=== PATIENT | female | born 1990 | race Two or more races ===

== ENCOUNTER 2025-03-19 11:45 | Inpatient (IN) | payer MEDICAID, OTHER ==
[~2025-03-19] VITALS: Ht 170.2 cm; Wt 71.7 kg
[2025-03-19 12:38] LABS: Urine Bacteria None Seen /hpf (None Seen)
[2025-03-19 12:42] LABS: Basophils # (auto) 0 10 ^3/uL (0-0.2); Basophils % (auto) 0.5 % (0.0-2.0); Eosinophils # (auto) 0 10 ^3/uL (0-0.8); Eosinophils % (auto) 0.7 % (0.0-7.0); Hematocrit 36.6 % (36.0-46.0); Hemoglobin 12.7 g/dL (12.2-16.2); Lymphocytes # (auto) 1.7 10 ^3/uL (0.4-5.4); Lymphocytes % (auto) 24.6 % (10.0-50.0); Mean Corpuscular Hemoglobin 30.2 pg (28.0-32.0); Mean Corpuscular Hgb Conc. 34.7 g/dL (32.0-36.0); Monocytes # (auto) 0.6 10 ^3/uL (0-1.3); Neutrophils # (auto) 4.6 10 ^3/uL (1.6-8.6); Neutrophils % (auto) 65.2 % (37.0-80.0); Platelet Count (auto) 170 10^3/uL (140-450); Red Cell Distribution Width 14.8 % (11.8-14.3)
[2025-03-19 12:56] LABS: Urine Blood 1+ /uL (Negative); Urine Clarity Clear (Clear); Urine Color Yellow (Yellow); Urine Mucus FEW (None Seen); Urine Protein, UAD TRACE (Negative); Urine Specific Gravity 1.029 (1.001-1.035); Urine Squamous Epithelial Cell FEW /hpf (<5); Urine Urobilinogen Normal (Negative); Urine WBC 2 /HPF (0-5); Urine pH 5.5 (5.0-9.0)
[2025-03-19 12:58] LABS: INR 0.95 (0.9-1.15); Partial Thromboplastin Time 26.9 SEC (24.5-34.5); Prothrombin Time 10.1 sec (9.3-11.8)
[2025-03-19 13:00] LABS: Alanine Aminotransferase 11 U/L (7-40); Alkaline Phosphatase 186 U/L (46-116); Anion Gap 11 (5-15); Aspartate Aminotransferase 15 U/L (13-40); BUN/Creatinine Ratio 22.5 (10.0-20.0); Bilirubin, Total 0.5 mg/dL (0.2-1.0); Blood Urea Nitrogen 16 mg/dL (9-23); Calcium 9.9 mg/dL (8.7-10.4); Carbon Dioxide 20 mmol/L (20-31); Chloride 108 mmol/L (98-107); Glucose 94 mg/dL (74-106); Potassium 3.9 mmol/L (3.5-5.1); Sodium 139 mmol/L (136-145)
--- NOTE | 2025-03-19 13:36 | DVH ---
CLINICAL HISTORY: Spontaneous rupture of membranes. No care. COMPARISON: None TECHNIQUE: biophysical profile was performed. Transabdominal sonographic images of the fetus we re obtained. FINDINGS: The fetus is in cephalic position. heart rate measures 143 BPM. Amniotic fluid index measures 10.4 cm. The placenta is anterior in position. BPP profile is an overall score of 4/8, with 2/2 points for breathing, with at least one episode of breathing over a 30 second duration during a 30 minute observation, 0/2 points for m ovements, without 3 or more discrete body or limb movements, 0/2 points for tone, without one o r more episodes of extremity extension with return to flexion, or opening and closing of hand, and 2/2 points for amniotic fluid, with at least 1 pocket of amniotic fluid that measures 2 cm in 2 p erpendicular planes. IMPRESSION: 1. Abnormal BPP score of 4/8, with 0/2 for movements and 0/2 for tone. 2. The patient's RN was informed of the abnormal BPP findings by the drum carrier.
[2025-03-19 14:02] LABS: Amphetamine Screen, Urine Neg (NEGATIVE); Barbiturate Scree,Urine Neg (NEGATIVE); Benzodiazephine Screen, Urine Neg (NEGATIVE); Cannabinoid Screen, Urine Neg (NEGATIVE); Cocaine Screen, Urine Neg (NEGATIVE); Opiate Scree,Urine Neg (NEGATIVE); Phencyclidine Screen, Urine Neg (NEGATIVE)
--- NOTE | 2025-03-19 14:35 | DVH ---
OB ULTRASOUND COMPLETE: HISTORY: No Care TECHNIQUE: Multiple real-time grayscale images of the gravid uterus with duplex Doppler color flow an d M-mode spectral analysis. FINDINGS: IUP single live fetus at average ultrasound age (AUA) based on composite averages of the BPD, head c ircumference, abdominal circumference and femur length Age based on (early ultrasound) : MEASUREMENTS: BPD: 8.89 cm GA: 36w 0d; 11.4 %, HC: 31.82 cm GA: 35 w 6 d; <3%; AC: 31.52 cm GA : 5 w 3 d; <3%, FL: 6.83 cm GA: 35 w 1 d HL: Not given HC/AC Ratio: 1.01 Range: 0.93-1.09 CI: 84.84 (70 86) FL/BPD: 76.8 (71-87) FL/AC: 21. (20-24) FL/HC: 21.46 (20.1-22.19) Estimated weight 2679 +/-4 grams; 5 lbs 14 oz, <10% percentile. heart rate 143 beats per minute GABO 10.4 cm, MVP given anatomic survey: Lateral ventricles: Normal Posterior fossa: Normal Umbilical cord: Normal thre e-vessel C-spine: Normal T-spine: Normal L-spine: Normal Heart: Normal four-chamber Kidneys: Normal w ithout hydronephrosis Bladder: Normal Lower extremities: Normal Upper extremities: Normal Stomach: No rmal stomach bubble Diaphragms: Normal Nose/lips: Normal RVOT: Normal LVOT: Performed on prior study. Cephalic Presentation Anterior Grade 2 Placenta without previa or abruption. There is a 0.92 x 1.42 x 1.48 cm venous Romo in the placenta. Cervix closed length measurement not given IMPRESSION: 1. IUP single live fetus at 35 weeks 4 days plus or minus 2 weeks 3 days AUA corresponding to an DELON of 04/19/2025. 2. FHR: 143 bpm.
[2025-03-19] MEDS ORDERED: BUTORPHANOL TARTRATE 2 MG/1 ML VIAL IV PRN ×2 (15:15)
--- NOTE | 2025-03-19 15:31 | DVHHP ---
ADMIT DATE: 03/19/2025 CHIEF COMPLAINT: Rupture of membrane. HISTORY OF PRESENT ILLNESS: The patient is a 34-year-old 1 para 0 with EDC of 03/28, estimated gestational age of 38 plus weeks, admitted for spontaneous rupture of membranes. The patient reports having some leakage. She had care in [place], limited. She gives a due date of 03/28. Denies any other issues. PAST MEDICAL HISTORY: None. PAST SURGICAL HISTORY: None. SOCIAL HISTORY: None. FAMILY HISTORY: None. OBSTETRIC AND GYNECOLOGIC HISTORY: Primigravid. REVIEW OF SYSTEMS: Consistent with HPI. ALLERGIES: No known drug allergies. PHYSICAL EXAMINATION: VITAL SIGNS: Afebrile. HEENT: Within normal limits. CARDIOVASCULAR: Regular rate and rhythm. LUNGS: Clear to auscultation. BREASTS: Breasts symmetrical, no masses. ABDOMEN: Gravid. Positive heart. PELVIC: Cervix fingertip, thick, high. Positive AmniSure. No pooling. EXTREMITIES: No clubbing, cyanosis or edema. IMPRESSION: * Intrauterine at 38 plus weeks with spontaneous rupture of membranes. * Limited care. PLAN: Admit. We will proceed with Cytotec. Start Ancef. Informed consent obtained. DO HORACE Villaseñor TID: [id number] RECEIPT: [id number]
--- NOTE | 2025-03-19 15:41 | DVH ---
EXAM: US BIOPHYSICAL PROFILE HISTORY: REPEAT FOR FAILED BPP COMPARISON: US BIOPHYSICAL PROFILE on DOS: 03/19/25 TECHNIQUE: Multiple transabdominal real-time grayscale sonographic images through the gravid uterus of the fetus with duplex Doppler color flow and M-mode spectral analysis Findings/Impression: Single live intrauterine in vertex presentation with heart rate of 137 bpm. Biophysical profile was performed with 2 points for respirations, 2 points for movement, 2 points for tone and 2 points for amniotic fluid index. Biophysical profile score of 8/8. Amniotic fluid is within normal limits with GABO 9.0 cm and MVP 5.7 cm. Nuchal cord. Normal GAOB (5-25 cm) Normal MVP (2-8 cm)
[2025-03-19] MEDS: ceFAZolin 1GM/50ML 50 ML IV SCH (16:29)
[2025-03-19] MEDS: LACTATED RINGER'S 1,000 ML IV SCH (16:30)
[2025-03-19] MEDS ORDERED: PENICILLIN G POTASSIUM 2,500,000 UNITS in D5W 5% 50 ML IV SCH (19:15)
[2025-03-19] MEDS ORDERED: NALBUPHINE HCL 10 MG/1ml INJECTION IV PRN (20:15)
[2025-03-19] MEDS: miSOPROStol 50 MCG per PRE-CUT 1/2 TAB PO PRN (20:32)
--- NOTE | 2025-03-19 21:25 | DVHPN2 ---
OB Labor Progress Note Date and Time Seen Date Seen: March 19, 2025 Time Seen: 20:03 Objective Vital Signs VSS Monitoring Method Monitoring Method: External Heart Rate Heart Rate Variability: Moderate Presence of FHR Accelerations: Yes Presence of FHR Decelerations: No Changes in Trends of Patterns: No Are all 5 Components of the FH: Yes Contractions Contractions Frequency: None Membranes Membranes: Ruptured Amniotic Fluid Color: Clear Vaginal Exam Vag Exam Deferred: Yes Medications Medications - Pitocin: No Medication - Epidural: No Medication - Other Misoprostol to be started Lab Results Lab Results Current Medications Medications (Trade) Dose Ordered Sig/Gonzales Start Time Stop Time Status Last Admin Dose Admin Lactated Ringer's 1,000 ml @ 125 mls/hr Q8H 03/19/25 15:15 03/19/25 16:30 125 MLS/HR Penicillin G Potassium 50 ml @ 100 mls/hr ONCE ONCE 03/19/25 15:15 03/19/25 15:44 DC Penicillin G Potassium [id number] units/Dextrose 50 ml @ 100 mls/hr Q4H 03/19/25 19:15 Cefazolin Sodium 50 ml @ 100 mls/hr Q8HR 03/19/25 22:00 03/19/25 15:35 DC Witch Sharon (Tucks) 1 pad PRN PRN 03/19/25 15:15 Sodium Lauryl Sulfate (Phisoderm) 240 ml PRN PRN 03/19/25 15:15 Benzocaine (Dermoplast) 1 applic PRN PRN 03/19/25 15:15 Butorphanol Tartrate (Stadol Injection) 1 mg Q4HPRN PRN 03/19/25 15:15 03/19/25 20:09 DC Butorphanol Tartrate (Stadol Injection) 2 mg Q4HPRN PRN 03/19/25 15:15 03/19/25 20:09 DC Lidocaine HCl (Xylocaine) 20 ml ONCE PRN 03/19/25 15:15 Cefazolin Sodium 50 ml @ 100 mls/hr Q8HR 03/19/25 16:00 03/19/25 16:29 100 MLS/HR Misoprostol (Cytotec) 50 mcg Q4HPRN PRN 03/19/25 20:15 03/19/25 20:32 50 MCG Nalbuphine HCl (Nubain) 10 mg Q4HP PRN 03/19/25 20:15 Laboratory Tests Test 03/19/25 13:20 03/19/25 12:24 Range/Units Placental [id number]-5-[id number] Positive White Blood Count 7.0 4.4-10.8 10^3/uL Red Blood Count 4.20 4.0-5.20 10^6/uL Hemoglobin 12.7 12.2-16.2 g/dL Hematocrit 36.6 36.0-46.0 % Mean Corpuscular Volume 87.0 80.0-100.0 fL Mean Corpuscular Hemoglobin 30.2 28.0-32.0 pg Mean Corpuscular Hemoglobin Concent 34.7 32.0-36.0 g/dL Red Cell Distribution Width 14.8 H 11.8-14.3 % Platelet Count 170 140-450 10^3/uL Mean Platelet Volume 6.4 L 6.9-10.8 fL Neutrophils (%) (Auto) 65.2 37.0-80.0 % Lymphocytes (%) (Auto) 24.6 10.0-50.0 % Monocytes (%) (Auto) 9.0 0.0-12.0 % Eosinophils (%) (Auto) 0.7 0.0-7.0 % Basophils (%) (Auto) 0.5 0.0-2.0 % Neutrophils # (Auto) 4.6 1.6-8.6 10 ^3/uL Lymphocytes # (Auto) 1.7 0.4-5.4 10 ^3/uL Monocytes # (Auto) 0.6 0-1.3 10 ^3/uL Eosinophils # (Auto) 0 0-0.8 10 ^3/uL Basophils # (Auto) 0 0-0.2 10 ^3/uL Nucleated Red Blood Cells 0.0 % Prothrombin Time 10.1 9.3-11.8 sec Prothrombin Time INR 0.95 0.9-1.15 Activated Partial Thromboplast Time 26.9 24.5-34.5 SEC Urine Color Yellow Yellow Urine Clarity Clear Clear Urine pH 5.5 5.0-9.0 Urine Specific [place] 1.029 1.001-1.035 Urine Protein Trace H Negative Urine Ketones Negative Negative Urine Blood 1+ H Negative /uL Urine Nitrite Negative Negative Urine Bilirubin Negative Negative Urine Urobilinogen Normal Negative mg/dL Urine Leukocyte Esterase 1+ Negative /uL Urine RBC 4 0 - 4 /hpf Urine Microscopic WBC 2 0-5 /HPF Urine Squamous Epithelial Cells Few <5 /hpf Urine Bacteria None seen None Seen /hpf Urine Mucus Few None Seen Urine Glucose Normal Normal mg/dL Sodium Level 139 136-145 mmol/L Potassium Level 3.9 3.5-5.1 mmol/L Chloride Level 108 H 98-107 mmol/L Carbon Dioxide Level 20 20-31 mmol/L Anion Gap 11 5-15 Blood Urea Nitrogen 16 9-23 mg/dL Creatinine 0.71 0.550-1.02 mg/dL Glomerular Filtration Rate Calc 114 >90 mL/min BUN/Creatinine Ratio 22.5 H 10.0-20.0 Serum Glucose 94 74-106 mg/dL Hemoglobin A1c 5.2 <5.7 % A1C Calcium Level 9.9 8.7-10.4 mg/dL Total Bilirubin 0.5 0.2-1.0 mg/dL Aspartate Amino Transferase (AST) 15 13-40 U/L Alanine Aminotransferase (ALT) 11 7-40 U/L Alkaline Phosphatase 186 H 46-116 U/L Total Protein 7.0 5.7-8.2 g/dL Albumin 4.0 3.2-4.8 g/dL Urine Opiates Screen Neg NEGATIVE Urine Fentanyl Screen Neg NEGATIVE Urine Barbiturates Screen Neg NEGATIVE Urine Phencyclidine Screen Neg NEGATIVE Urine Amphetamines Screen Neg NEGATIVE Urine Benzodiazepines Screen Neg NEGATIVE Urine Cocaine Screen Neg NEGATIVE Urine Cannabinoids Screen Neg NEGATIVE Treponema pallidum Antibody Non-reactive Negative Hepatitis B Surface Antigen Negative Negative Hepatitis C Antibody Negative Negative HIV (1&2) Antibody Negative Negative Assessment Assessment IUP at 38w 5d PSROM IOL due to SROM Category I FHR tracing Plan Plan IOL Misoprostol per policy EFM per policy Intrauterine resuscitation PRN Labor Analgesia PRN Encourage frequent position change and ambulation to facilitate labor Supportive care Anticipate Plan discussed with: Patient, Other (Aunts x2 and cousin's ) Visit Coding OBGYN Date of Service: March 19, 2025 Billing Provider: COREY SIFUENTES CNM THEATER TEACHER Common Visit Codes: [id number] INP/OBS CARE(HIGH) THEATER TEACHER Procedure Codes: 97429-89- NON-STRESS TEST COREY SIFUENTES CNM March 19, 2025 21:25
[2025-03-19] MEDS ORDERED: ceFAZolin 1GM/50ML 50 ML IV SCH (22:00)
[2025-03-20] MEDS: DERMOPLAST 60ML BOTTLE TOP PRN (02:09)
[2025-03-20] MEDS: WITCH HAZEL-GLYCERIN PAD TOP PRN (02:09)
[2025-03-20] MEDS: PHISODERM TOP SOLN 240ML BTL TOP PRN (02:10)
--- NOTE | 2025-03-20 04:38 | DVHPN2 ---
OB Labor Progress Note Date and Time Seen Date Seen: March 20, 2025 Time Seen: 02:47 Subjective Patient reports: No new complaints Monitoring Method Monitoring Method: External Heart Rate Heart Rate Baseline: 135 Heart Rate Variability: Moderate Presence of FHR Accelerations: Yes Presence of FHR Decelerations: No Changes in Trends of Patterns: No Are all 5 Components of the FH: Yes Contractions Contractions Frequency: Other (1-2 in 10minutes) Duration of Contraction: 50 Contractions Intensity: Mild Contractions Resting Tone: Relaxed Membranes Membranes: Ruptured Amniotic Fluid Color: Clear Vaginal Exam Vag Exam Deferred: No Vaginal Exam Dilation: 2 Vaginal Exam Effacement: 50 Vaginal Exam Station: -2 Vaginal Exam Presentation: VTX Vaginal Exam Show: None Medications Medications - Pitocin: No Medication - Epidural: No Medication - Other Misoprostol Lab Results Lab Results Current Medications Medications (Trade) Dose Ordered Sig/Gonzales Start Time Stop Time Status Last Admin Dose Admin Lactated Ringer's 1,000 ml @ 125 mls/hr Q8H 03/19/25 15:15 03/19/25 16:30 125 MLS/HR Penicillin G Potassium 50 ml @ 100 mls/hr ONCE ONCE 03/19/25 15:15 03/19/25 15:44 DC Penicillin G Potassium [id number] units/Dextrose 50 ml @ 100 mls/hr Q4H 03/19/25 19:15 Cefazolin Sodium 50 ml @ 100 mls/hr Q8HR 03/19/25 22:00 03/19/25 15:35 DC Felipa Herrera (Tucks) 1 pad PRN PRN 03/19/25 15:15 03/20/25 02:09 1 PAD Sodium Lauryl Sulfate (Phisoderm) 240 ml PRN PRN 03/19/25 15:15 03/20/25 02:10 240 ML Benzocaine (Dermoplast) 1 applic PRN PRN 03/19/25 15:15 03/20/25 02:09 1 APPLIC Butorphanol Tartrate (Stadol Injection) 1 mg Q4HPRN PRN 03/19/25 15:15 03/19/25 20:09 DC Butorphanol Tartrate (Stadol Injection) 2 mg Q4HPRN PRN 03/19/25 15:15 03/19/25 20:09 DC Lidocaine HCl (Xylocaine) 20 ml ONCE PRN 03/19/25 15:15 Cefazolin Sodium 50 ml @ 100 mls/hr Q8HR 03/19/25 16:00 03/20/25 00:03 100 MLS/HR Misoprostol (Cytotec) 50 mcg Q4HPRN PRN 03/19/25 20:15 03/20/25 00:32 50 MCG Nalbuphine HCl (Nubain) 10 mg Q4HP PRN 03/19/25 20:15 Laboratory Tests Test 03/19/25 13:20 03/19/25 12:24 Range/Units Placental Hhbnl-9-Qebxwbuccljwu Positive White Blood Count 7.0 4.4-10.8 10^3/uL Red Blood Count 4.20 4.0-5.20 10^6/uL Hemoglobin 12.7 12.2-16.2 g/dL Hematocrit 36.6 36.0-46.0 % Mean Corpuscular Volume 87.0 80.0-100.0 fL Mean Corpuscular Hemoglobin 30.2 28.0-32.0 pg Mean Corpuscular Hemoglobin Concent 34.7 32.0-36.0 g/dL Red Cell Distribution Width 14.8 H 11.8-14.3 % Platelet Count 170 140-450 10^3/uL Mean Platelet Volume 6.4 L 6.9-10.8 fL Neutrophils (%) (Auto) 65.2 37.0-80.0 % Lymphocytes (%) (Auto) 24.6 10.0-50.0 % Monocytes (%) (Auto) 9.0 0.0-12.0 % Eosinophils (%) (Auto) 0.7 0.0-7.0 % Basophils (%) (Auto) 0.5 0.0-2.0 % Neutrophils # (Auto) 4.6 1.6-8.6 10 ^3/uL Lymphocytes # (Auto) 1.7 0.4-5.4 10 ^3/uL Monocytes # (Auto) 0.6 0-1.3 10 ^3/uL Eosinophils # (Auto) 0 0-0.8 10 ^3/uL Basophils # (Auto) 0 0-0.2 10 ^3/uL Nucleated Red Blood Cells 0.0 % Prothrombin Time 10.1 9.3-11.8 sec Prothrombin Time INR 0.95 0.9-1.15 Activated Partial Thromboplast Time 26.9 24.5-34.5 SEC Urine Color Yellow Yellow Urine Clarity Clear Clear Urine pH 5.5 5.0-9.0 Urine Specific [place] 1.029 1.001-1.035 Urine Protein Trace H Negative Urine Ketones Negative Negative Urine Blood 1+ H Negative /uL Urine Nitrite Negative Negative Urine Bilirubin Negative Negative Urine Urobilinogen Normal Negative mg/dL Urine Leukocyte Esterase 1+ Negative /uL Urine RBC 4 0 - 4 /hpf Urine Microscopic WBC 2 0-5 /HPF Urine Squamous Epithelial Cells Few <5 /hpf Urine Bacteria None seen None Seen /hpf Urine Mucus Few None Seen Urine Glucose Normal Normal mg/dL Sodium Level 139 136-145 mmol/L Potassium Level 3.9 3.5-5.1 mmol/L Chloride Level 108 H 98-107 mmol/L Carbon Dioxide Level 20 20-31 mmol/L Anion Gap 11 5-15 Blood Urea Nitrogen 16 9-23 mg/dL Creatinine 0.71 0.550-1.02 mg/dL Glomerular Filtration Rate Calc 114 >90 mL/min BUN/Creatinine Ratio 22.5 H 10.0-20.0 Serum Glucose 94 74-106 mg/dL Hemoglobin A1c 5.2 <5.7 % A1C Calcium Level 9.9 8.7-10.4 mg/dL Total Bilirubin 0.5 0.2-1.0 mg/dL Aspartate Amino Transferase (AST) 15 13-40 U/L Alanine Aminotransferase (ALT) 11 7-40 U/L Alkaline Phosphatase 186 H 46-116 U/L Total Protein 7.0 5.7-8.2 g/dL Albumin 4.0 3.2-4.8 g/dL Urine Opiates Screen Neg NEGATIVE Urine Fentanyl Screen Neg NEGATIVE Urine Barbiturates Screen Neg NEGATIVE Urine Phencyclidine Screen Neg NEGATIVE Urine Amphetamines Screen Neg NEGATIVE Urine Benzodiazepines Screen Neg NEGATIVE Urine Cocaine Screen Neg NEGATIVE Urine Cannabinoids Screen Neg NEGATIVE Treponema pallidum Antibody Non-reactive Negative Chlamydia trachomatis (KORINA) Pending Hepatitis B Surface Antigen Negative Negative Hepatitis C Antibody Negative Negative HIV (1&2) Antibody Negative Negative Neisseria gonorrhoeae ([place]ORINA) Pending Assessment Assessment IUP at 38w 6d SROM IOL for above Plan Plan Continue with current plan Misoprostol Intrauterine resuscitation PRN Labor analgesia PRN Supportive care Anticipate Plan discussed with: Patient, Other (Family - Aunts and cousin's ) Visit Coding OBGYN Date of Service: March 20, 2025 Billing Provider: COREY SIFUENTES CNM BILINGUAL RESEARCH INTERVIEWER Common Visit Codes: [id number] INP/OBS CARE(HIGH) BILINGUAL RESEARCH INTERVIEWER Procedure Codes: 08543-70- NON-STRESS TEST COREY SIFUENTES CNM March 20, 2025 04:38
[2025-03-20] MEDS: fentaNYL CITRATE 100 MCG/2 ML VL IV ONE (09:45)
[2025-03-20] MEDS ORDERED: LIDOCAINE HCL 2 %PF INJ 10ML AMP IJ ONE (09:45)
[2025-03-20] MEDS ORDERED: NALOXONE HCL 0.4 MG/ML VIAL IV ONE ×2 (09:45→14:45)
[2025-03-20] MEDS: LACT. RINGERS/OXYTOCIN 20UNITS 500 ML IV ONE (12:00)
[2025-03-20] MEDS ORDERED: TERBUTALINE SULFATE 1 MG/ML 1ML VIAL SC PRN (12:00)
[2025-03-20] MEDS: ePHEDrine SULFATE 50 MG/ML AMP IV ONE ×2 (12:45→14:45)
[2025-03-20] MEDS: PENICILLIN G POT 5MIL/D5 50ML 50 ML IV ONE (14:10)
[2025-03-20] MEDS: ACETAMINOPHEN 325 MG TAB PO ONE (14:24)
[2025-03-20] MEDS: ROPIVACAINE HCL 200 ML ONE (15:15)
[2025-03-20] MEDS: ceFAZolin 1GM/50ML 50 ML IV SCH (16:21)
[2025-03-20] MEDS: LACTATED RINGER'S 1,000 ML IV ONE (17:35)
[2025-03-20] MEDS: PENICILLIN G POTASSIUM 2,500,000 UNITS in D5W 5% 50 ML IV SCH (17:55)
[2025-03-20] MEDS: LACT. RINGERS/OXYTOCIN 20UNITS 1,000 ML IV SCH (20:38)
[2025-03-20] MEDS: ONDANSETRON HCL 4 MG/2 ML VIAL ONE (20:41)
[2025-03-20] MEDS: ONDANSETRON HCL 4 MG/2 ML VIAL IV PRN (20:52)
[2025-03-20] MEDS: ACETAMINOPHEN 325 MG TAB PO PRN (22:59)
[2025-03-20] MEDS ORDERED: METHYLERGONOVINE MALEATE 0.2 MG/ML AMP IM PRN (23:45)
[2025-03-21] MEDS: LACT. RINGERS/OXYTOCIN 20UNITS 500 ML IV ONE (03:32)
[2025-03-21] MEDS: LIDOCAINE 2%HCL (LOCAL ANESTH.) INJ 20ML MDV IJ PRN (04:06)
--- NOTE | 2025-03-21 04:10 | LDN2 ---
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 Greer Comments/Significant Med Alisha At 0259 this 34yo now delivered a viable Female by w/ APGARS 9/9. HEATHER. placed skin to skin on pts chest. Cord clamped and cut after 2 minutes. Cord blood sent. Intact 3-vessel cord placenta delivered spontaneously, [place]. Pitocin IV bolus started. Placenta sent to pathology. Patient had epidural and local anesthesia. Cervix/vagina inspected (intact) and second degree perineal and left labial laceration present which was repaired with 2-0 Chromic suture. Rectal mucosa and sphincter intact. Rectal exam performed, WNL, not involved.Fundus at U, firm, midline, and light lochia. QBL 300ml. VSS. Count correct x2. Patient to care and baby to couplet care, both stable. Visit Coding OBGYN Date of Service: March 21, 2025 Billing Provider: KATIE KATHLEEN DO NURSING TECHNICIAN Common Visit Codes: PROCEDURE ONLY NURSING TECHNICIAN Procedure Codes: [id number] DEL INCLUDING JAMES MORROW STDIta MDWF March 21, 2025 04:10
[2025-03-21 07:00] VITALS: BP 101/52; PULSE 88; RESP 20; TEMP 98.5; O2SAT 96
[2025-03-21] MEDS ORDERED: ACETAMINOPHEN 325 MG TAB PO PRN (08:45)
[2025-03-21 11:15] VITALS: BP 107/64; PULSE 80; RESP 15; TEMP 99.1; O2SAT 97
[2025-03-21] MEDS: IBUPROFEN 600 MG TAB PO PRN (15:10)
[2025-03-21 15:15] VITALS: BP 105/67; PULSE 90; RESP 15; TEMP 98.9; O2SAT 95
[2025-03-21] MEDS: DOCUSATE SOD 100 MG CAP PO SCH (22:50)
[2025-03-21 23:00] VITALS: BP 106/64; PULSE 84; RESP 16; TEMP 98.9; O2SAT 96
--- NOTE | 2025-03-22 01:10 | DVHPN2 ---
Progress Note Date Seen: March 22, 2025 Subjective S: bleeding is less, eating food without issues, denies lightheaded/dizziness, pain well controlled with oral medications, no concerns with urinating, passing flatus, no BM yet, ambulating well, and formula vital signs Vital Sign Date Time Temp Pulse Resp B/P (MAP) Pulse Ox O2 Delivery O2 Flow Rate FiO2 03/21/25 23:00 98.9 84 16 106/64 (78) 96 98.9 03/21/25 07:00 Room Air 0.0 Total Intake and Output 03/21/25 03/21/25 03/22/25 15:00 23:00 07:00 Output Total 400 ml 500 ml Balance -400 ml -500 ml medications Current Medications Medications Dose Ordered Sig/Gonzales Route Start Time Stop Time Status Last Admin Dose Admin Felipa Herrera 1 pad PRN PRN TOP 03/19/25 15:15 03/20/25 02:09 1 PAD Sodium Lauryl Sulfate 240 ml PRN PRN TOP 03/19/25 15:15 03/20/25 02:10 240 ML Benzocaine 1 applic PRN PRN TOP 03/19/25 15:15 03/20/25 02:09 1 APPLIC Nalbuphine HCl 10 mg Q4HP PRN IV 03/19/25 20:15 Cancel Terbutaline Sulfate 0.25 mg ONCE PRN SC 03/20/25 12:00 Cancel Ondansetron HCl 4 mg Q4HPRN PRN IV 03/20/25 20:45 03/21/25 01:26 4 MG Acetaminophen 650 mg Q4HP PRN PO 03/20/25 23:00 03/21/25 07:09 650 MG Methylergonovine Maleate 0.2 mg Q8HP PRN IM 03/20/25 23:45 03/22/25 23:44 Ibuprofen 600 mg Q6HP PRN PO 03/21/25 08:45 03/21/25 15:10 600 MG Docusate Sodium 200 mg HS PO 03/21/25 22:00 03/21/25 22:50 200 MG laboratory and microbiology Laboratory Tests 03/19/25 12:24 Test 03/19/25 12:24 Range/Units Serum Glucose 94 74-106 mg/dL Objective O: VSS Chest: heart sounds normal and lung sounds clear bilaterally Abd: soft, non-tender, fundus at U/firm/midline, active bowel sounds, no rebound or guarding Perineum: sutures intact, edges well approximated, no erythema/edema noted Ext: Non-tender, No edema, 2+ BLE DTRs Lochia: minimal See lab results Problems(with codes): (1) (normal spontaneous vaginal delivery) (2) Obstetric labial laceration, delivered, current hospitalization (3) Precipitous drop in hematocrit (4) Second degree perineal laceration during delivery Assessment/Plan A/P: 34yo now PPD#1 s/p -Continue with routine PP care Plan discussed with: Patient, Other (Family - Aunts and cousin's ) Visit Coding OBGYN Date of Service: March 22, 2025 Billing Provider: ONEIL JARAMILLO CNM RESIDENT ASSOCIATE Common Visit Codes: [id number] INP/OBS CARE(MOD) ONEIL JARAMILLO CNM March 22, 2025 01:10
--- NOTE | 2025-03-22 01:11 | DVHDS2 ---
Physician Discharge Progress N Follow Up Care: Discharge Statement: "Patient was advised to return to the ER or call 911 if any headaches, dizziness, shortness of breath, chest pain, abdominal pain, bleeding, fevers, or worsening of medical condition. Patient was counseled about treatment plan, medications, possible side effects, patientverbalized understanding. All questions were answered to the best of my ability. This discharge took greater then 30 minutes in planning, reviewing documentation, counseling the patient, and discussing with other team members." ONEIL JARAMILLO CNM March 22, 2025 01:11
[2025-03-22] MEDS ORDERED: IBU600T PO (02:03)
[2025-03-22] MEDS ORDERED: PREN-96 PO (02:03)
[2025-03-22] MEDS ORDERED: DOCU-265 PO (02:03)
[2025-03-22 03:00] VITALS: BP 97/55; PULSE 73; RESP 16; TEMP 98; O2SAT 96
[2025-03-22 07:00] VITALS: BP 107/57; PULSE 76; RESP 16; TEMP 98.4; O2SAT 95
[2025-03-22 09:19] LABS: Basophils # (auto) 0 10 ^3/uL (0-0.2); Basophils % (auto) 0.4 % (0.0-2.0); Eosinophils # (auto) 0.1 10 ^3/uL (0-0.8); Hematocrit 30.7 % (36.0-46.0); Hemoglobin 10.3 g/dL (12.2-16.2); Lymphocytes # (auto) 2.3 10 ^3/uL (0.4-5.4); Lymphocytes % (auto) 21.2 % (10.0-50.0); Mean Corpuscular Hemoglobin 29.5 pg (28.0-32.0); Mean Corpuscular Hgb Conc. 33.5 g/dL (32.0-36.0); Mean Corpuscular Volume 88.2 fL (80.0-100.0); Monocytes # (auto) 0.7 10 ^3/uL (0-1.3); Monocytes % (auto) 6.5 % (0.0-12.0); Neutrophils # (auto) 7.8 10 ^3/uL (1.6-8.6); Neutrophils % (auto) 70.9 % (37.0-80.0); Platelet Count (auto) 157 10^3/uL (140-450); Red Blood Cells 3.47 10^6/uL (4.0-5.20); Red Cell Distribution Width 14.8 % (11.8-14.3)
[2025-03-22 11:00] VITALS: BP 103/56; PULSE 75; RESP 16; TEMP 98.2; O2SAT 96
[2025-03-22 15:00] VITALS: BP 101/68; PULSE 76; RESP 16; TEMP 99; O2SAT 97
[2025-03-22] MEDS ORDERED: FER325T PO (15:39)
[2025-03-22 19:00] VITALS: BP 99/63; PULSE 72; RESP 17; TEMP 98.1; O2SAT 97
[2025-03-22] MEDS: FERROUS SULFATE 325mg EC TAB PO ONE (22:02)
[2025-03-22 23:00] VITALS: BP 109/72; PULSE 68; RESP 14; TEMP 97.9; O2SAT 96
--- NOTE | 2025-03-23 01:49 | DVHPN2 ---
Progress Note Date Seen: March 23, 2025 Subjective S: bleeding is less, eating food without issues, denies lightheaded/dizziness, pain well controlled with oral medications, no concerns with urinating, passing flatus, no BM yet, ambulating well, and formula vital signs Vital Sign Date Time Temp Pulse Resp B/P (MAP) Pulse Ox O2 Delivery O2 Flow Rate FiO2 03/22/25 23:00 97.9 68 14 109/72 (84) 96 97.9 03/22/25 19:00 Room Air 03/21/25 07:00 0.0 Total Intake and Output 03/22/25 03/22/25 03/23/25 15:00 23:00 07:00 Intake Total 300 ml Balance 300 ml medications Current Medications Medications Dose Ordered Sig/Gonzales Route Start Time Stop Time Status Last Admin Dose Admin Felipa Herrera 1 pad PRN PRN TOP 03/19/25 15:15 03/20/25 02:09 1 PAD Sodium Lauryl Sulfate 240 ml PRN PRN TOP 03/19/25 15:15 03/20/25 02:10 240 ML Benzocaine 1 applic PRN PRN TOP 03/19/25 15:15 03/20/25 02:09 1 APPLIC Nalbuphine HCl 10 mg Q4HP PRN IV 03/19/25 20:15 Cancel Terbutaline Sulfate 0.25 mg ONCE PRN SC 03/20/25 12:00 Cancel Ondansetron HCl 4 mg Q4HPRN PRN IV 03/20/25 20:45 03/21/25 01:26 4 MG Acetaminophen 650 mg Q4HP PRN PO 03/20/25 23:00 03/21/25 07:09 650 MG Ibuprofen 600 mg Q6HP PRN PO 03/21/25 08:45 03/22/25 19:48 600 MG Docusate Sodium 200 mg HS PO 03/21/25 22:00 03/22/25 22:02 200 MG laboratory and microbiology Laboratory Tests 03/22/25 08:07 03/19/25 12:24 Test 03/19/25 12:24 Range/Units Serum Glucose 94 74-106 mg/dL Objective O: VSS Chest: heart sounds normal and lung sounds clear bilaterally Abd: soft, non-tender, fundus 1 below U/firm/midline, active bowel sounds, no rebound or guarding Perineum: sutures intact, edges well approximated, no erythema/edema noted Ext: Non-tender, No edema, 2+ BLE DTRs Lochia: minimal See lab results Problems(with codes): (1) (normal spontaneous vaginal delivery) (2) Second degree perineal laceration during delivery (3) Obstetric labial laceration, delivered, current hospitalization (4) Precipitous drop in hematocrit Assessment/Plan A: 34yo now PPD#2 s/p Rh+ Rubella Immune Breast and formula feeding P: D/C home today Rx sent to pharmacy precautions and preeclampsia warning signs reviewed F/U with [facility] office in 2 weeks Plan discussed with: Patient, Other (Family - Aunts and cousin's ) Visit Coding OBGYN Date of Service: March 23, 2025 Billing Provider: ONEIL JARAMILLO CNM SWING RIDE OPERATOR Common Visit Codes: [id number] INP/OBS CARE(MOD) ONEIL JARAMILLO CNM March 23, 2025 01:49
--- NOTE | 2025-03-23 01:54 | DVHDS2 ---
Obstetrics Discharge Summary Obstetrics Discharge Summary Date of Admission: March 19, 2025 Date of Discharge: March 23, 2025 Reason For Admission: Induction of Labor, PROM Procedures: NST, Ultrasound Intrapartum Procedures: Spontaneous vaginal deliv Procedures: Hct/date: (03/23/25), Hgb/date: (03/23/25) Operative Complicat: Laceration (second degree perineal and left labial laceration) Discharge Diagnosis: Term -Delivered Discharge Information: Activity (as tolerated, no heavy lifting and nothing in the vagina for 6 weeks), Diet (Routine), Medications (Rx sent), Instructions (Routine), Discharge to (Home), Accompanied by (partner), Discarge date (03/23/25) Visit Coding OBGYN Date of Service: March 23, 2025 Billing Provider: ONEIL JARAMILLO CNM CAE ENGINEER Common Visit Codes: [id number]/OBS DISCH DAY <30MIN ONEIL JARAMILLO CNM March 23, 2025 01:54
[2025-03-23 03:00] VITALS: BP 103/59; PULSE 62; RESP 17; TEMP 98; O2SAT 98
[2025-03-23 07:20] VITALS: BP 108/76; PULSE 60; RESP 15; TEMP 97.7; O2SAT 97
[2025-03-23 11:10] VITALS: BP 109/63; PULSE 66; RESP 16; TEMP 98.1; O2SAT 97
== END 2025-03-23 14:33 | disposition home or self-care (01) | DRG 560 ==
LOC: LDRP 11:45 → OBSVTOIN 15:03 → LDRP 15:04
PROVIDERS: ADMIT Obstetrics & Gynecology; ATTEND Obstetrics & Gynecology
PROC: 10E0XZZ Delivery of Products of Conception, External Approach (ICD-10-PCS; principal; 2025-03-21)
PROC: 0KQM0ZZ Repair Perineum Muscle, Open Approach (ICD-10-PCS; 2025-03-21)
PROC: 3E033VJ Introduction of Other Hormone into Peripheral Vein, Percutaneous Approach (ICD-10-PCS; 2025-03-21)
DX: O70.1 Second degree perineal laceration during delivery (principal); Z37.0 Single live birth; R71.0 Precipitous drop in hematocrit; Z3A.38 38 weeks gestation of pregnancy
CPT/HCPCS: 36415; 59409; 62282; 76805; 76819; 80053; 80307; 81001; 83036; 84112; 85025; 85610; 85730; 86703; 86780; 86803; 86850; 86900; 86901; 87340; 94760; 94762; 96360; 96361; 96365; 96366; 96374; 96375; G0378; J2405; J2540; J2590; J7060